=== PATIENT | female | born 2000 | race Caucasian/White ===

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

== ENCOUNTER 2018-02-03 22:49 | Emergency (ER) | payer OTHER ==
[~2018-02-03] VITALS: Ht 157.5 cm; Wt 52.3 kg
[2018-02-03 22:51] VITALS: BP 126/69; TEMP 99.7
[2018-02-03] MEDS ORDERED: OMEGA-3 1000 MG1 CAP PO (23:04)
[2018-02-03] MEDS ORDERED: PROBIOTIC FORMU1 CAP PO (23:04)
[2018-02-03 23:29] LABS: COLLECTION METHOD CLEAN CATCH
[2018-02-03 23:51] LABS: MUCOUS Present /lpf; PH 7 (5-8); URINE APPEARANCE Clear; URINE BACTERIA None Seen /hpf; URINE BILIRUBIN Negative (NEGATIVE); URINE BLOOD Negative (NEGATIVE); URINE COLOR Yellow; URINE GLUCOSE Negative (NEGATIVE); URINE KETONE Negative (NEGATIVE); URINE LEUKOCYTE ESTERASE 1+ (NEGATIVE); URINE NITRATE Negative (NEGATIVE); URINE PROTEIN(semi-quant) Negative (NEGATIVE); URINE RBC 0-2 /hpf; URINE UROBILINOGEN Negative (NEGATIVE)
[2018-02-04 01:08] VITALS: PULSE 95
== END 2018-02-04 01:11 | disposition home or self-care (01) ==
LOC: COL.ER 22:49
PROVIDERS: Emergency Medicine
DX: G43.909 Migraine, unspecified, not intractable, without status migrainosus (principal); J45.909 Unspecified asthma, uncomplicated; J06.9 Acute upper respiratory infection, unspecified
CPT/HCPCS: J1200; J1885; J2405; J7030

== ENCOUNTER 2019-03-28 22:29 | Emergency (ER) | payer OTHER ==
[~2019-03-28] VITALS: Ht 157.5 cm; Wt 54.5 kg
[~2019-03-28 22:29] MED LIST changes: +OMEGA-3 1000 MG1 CAP PO; +PROBIOTIC FORMU1 CAP PO
[2019-03-28 23:44] LABS: ALCOHOL(ethanol),MEDICAL 258 mg/dL; LIPASE 84 U/L (23-300)
[2019-03-29 01:54] VITALS: BP 109/76; PULSE 99; TEMP 98.1
== END 2019-03-29 02:06 | disposition home or self-care (01) ==
LOC: COL.ER 22:29
PROVIDERS: Emergency Medicine
DX: F10.129 Alcohol abuse with intoxication, unspecified (principal); Y90.8 Blood alcohol level of 240 mg/100 ml or more
CPT/HCPCS: J2405; J7030